=== PATIENT | male | born 1935 | race Caucasian/White ===

== ENCOUNTER 2017-10-04 13:17 | Emergency (ER) | payer OTHER, MEDICARE ==
[~2017-10-04] VITALS: Ht 177.8 cm; Wt 102.1 kg
[2017-10-04] MEDS ORDERED: IV NS 0.9% 500 ML BAG IV ONE (13:30)
--- NOTE | 2017-10-04 13:30 | NUR ---
[id number]: GENERALIZED WEAKNESS, LOW BLOOD PRESSURE. BS IN FIELD 154. CURRENTLY A/OX 4, BREATHING EVEN AND UNLABORED. NO SOB, NAD, VITALS STABLE. IV ESTABLISHED ON ROUTE, ON LAC, 18G. SAFETY AND COMFORT MEASURES IN PLACE. AWAITING MD ORDERS
--- NOTE | 2017-10-04 13:50 | NUR ---
PATIENT REFUSING BLOOD DRAW AT THIS TIME. REFUSING TO PROVIDE URINE WELL. STATING HE GOT ALL THESE TESTS DONE YESTERDAY AT [facility] AND EVERYTHING WAS FINE. INFORMED.
--- NOTE | 2017-10-04 14:10 | NUR ---
MD AT BEDSIDE DISCUSSING TREATMENT PLAN, BUT PATIENT IS REFUSING ALL TESTS. ASKING TO LEAVE. MD STATED PATIENT MAY LEAVE AMA.
[2017-10-04 14:27] VITALS: BP 153/77
--- NOTE | 2017-10-04 14:30 | NUR ---
PATIENT DISCHARGED AMA, STATING HE FEELS FINE. AMA FORM SIGNED, PATIENT STEADY ON FEET. NO COMPLICATIONS NOTED, LEFT AMA.
== END 2017-10-04 14:29 | disposition left against medical advice (07) ==
LOC: ER 13:19
DX: R55 Syncope and collapse (principal); I10 Essential (primary) hypertension; I25.2 Old myocardial infarction; Z88.0 Allergy status to penicillin; Z88.8 Allergy status to other drugs, medicaments and biological substances; Z91.013 Allergy to seafood; Z86.79 Personal history of other diseases of the circulatory system; Z60.2 Problems related to living alone; Z87.891 Personal history of nicotine dependence; Z53.20 Procedure and treatment not carried out because of patient's decision for unspecified reasons
CPT/HCPCS: A4606; J7040; Z7610